=== PATIENT | female | born 1985 | race Caucasian/White ===

== ENCOUNTER 2016-11-17 00:05 | Emergency (ER) | payer BC, OTHER ==
[2016-11-17 00:49] LABS: APPEARANCE,URINE SLIGHTLY-CLOUDY; BILIRUBIN,URINE NEGATIVE (NEGATIVE); GLUCOSE, URINE NEGATIVE (NEGATIVE); KETONES,URINE NEGATIVE (NEGATIVE); LEUKOCYTE ESTERASE,URINE NEGATIVE (NEGATIVE); NITRITE,URINE NEGATIVE (NEGATIVE); PROTEIN,URINE NEGATIVE (NEGATIVE); URINE SPECIFIC GRAVITY 1.027
--- NOTE | 2016-11-17 00:49 | ER Document Report ---
ED GI/ - General Chief Complaint: Abdominal Pain Stated Complaint: ABDOMINAL AND BACK PAIN Time Seen by Provider: 11/17/16 00:40 Notes: Patient is a 31-year-old female who comes emergency department for chief complaint of pains in both her lower abdomen and in her lower back, worse on the right side, he states the pain is intermittent, occasionally pain is worse and cause her nausea, she denies vomiting, she denies fever. She does admit to vaginal discharge, potential exposure with recent sexual encounter. She denies dysuria. Past medical history of appendectomy, C-sections, tubal ligation. She takes no daily medications. TRAVEL OUTSIDE OF THE [place] IN LAST 30 DAYS: No - Related Data Allergies/Adverse Reactions: Penicillins Allergy (Intermediate, Verified 02/06/16 17:53) ? as child Past Medical History - General Information source: Patient - Social History Smoking Status: Never Smoker Frequency of alcohol use: None Drug Abuse: None Lives with: Family Family History: CAD, DM, Hyperlipidemia, Hypertension, Malignancy - Past Medical History Cardiac Medical History: Denies: Hx Coronary Artery Disease, Hx Heart Attack, Hx Hypertension Pulmonary Medical History: Reports: Hx Bronchitis Denies: Hx Asthma, Hx COPD, Hx Pneumonia Neurological Medical History: Denies: Hx Cerebrovascular Accident, Hx Seizures Renal/ Medical History: Denies: Hx Peritoneal Dialysis Psychiatric Medical History: Reports: Hx Anxiety, Hx Bipolar Disorder, Hx Depression, Hx Personality Disorder Infectious Medical History: Reports: Hx MRSA Past Surgical History: Reports: Hx Appendectomy, Hx Section - x 3, Hx Orthopedic Surgery - right wrist, Hx Tubal Ligation - Immunizations Immunizations up to date: Yes Hx Diphtheria, Pertussis, Tetanus Vaccination: Yes Review of Systems - Review of Systems Constitutional: No symptoms reported EENT: No symptoms reported Cardiovascular: No symptoms reported Respiratory: No symptoms reported Gastrointestinal: See HPI Genitourinary: See HPI Female Genitourinary: No symptoms reported Musculoskeletal: No symptoms reported Skin: No symptoms reported Hematologic/Lymphatic: No symptoms reported Neurological/Psychological: No symptoms reported Physical Exam - Vital signs Vitals: Temp Pulse Resp BP Pulse Ox 98.9 F 80 16 122/75 100 11/17/16 00:23 11/17/16 00:23 11/17/16 00:23 11/17/16 00:23 11/17/16 00:23 Interpretation: Normal - General General appearance: Appears well, Alert In distress: None - Patient alert, talkative, well - HEENT Head: Normocephalic, Atraumatic Eyes: Normal Pupils: PERRL - Respiratory Respiratory status: No respiratory distress Chest status: Nontender Breath sounds: Normal Chest palpation: Normal - Cardiovascular Rhythm: Regular Heart sounds: Normal auscultation Murmur: No - Abdominal Inspection: Normal Distension: No distension Bowel sounds: Normal Tenderness: Nontender. No: Tender - Tender abdomen, no guarding, no rigidity Organomegaly: No organomegaly - Genitourinary External exam: Normal - [employer] Muriel present during exam Speculum exam: Cervix closed, Vaginal discharge - Moderate amount of vaginal discharge noted, mild erythema of the cervix, otherwise unremarkable examination Vaginal bleeding: None Bimanuel exam: No: Cervical motion tender - Back Back: Normal, Nontender. No: CVA tenderness - No CVA tenderness bilaterally - Extremities General upper extremity: Normal inspection, Nontender, Normal color, Normal ROM , Normal temperature General lower extremity: Normal inspection, Nontender, Normal color, Normal ROM , Normal temperature, Normal weight bearing. No: Ublmaro's sign - Neurological Neuro grossly intact: Yes Cognition: Normal Orientation: AAOx4 Casey Coma Scale Eye Opening: Spontaneous Casey Coma Scale Verbal: Oriented [place] Coma Scale Motor: Obeys Commands Casey Coma Scale Total: 15 Speech: Normal Motor strength normal: LUE, RUE, LLE, RLE Sensory: Normal - Psychological Associated symptoms: Normal affect, Normal mood - Skin Skin Temperature: Warm Skin Moisture: Dry Skin Color: Normal Course - Re-evaluation Re-evalutation: Whitman unremarkable, hCG is negative, initial wet mount is unremarkable although patient does have discharge on exam, reported exposure. Vital signs unremarkable. No CVA tenderness or abdominal pain on exam. Discussed with patient, patient will be covered for gonorrhea and chlamydia as well as pelvic infection with Rocephin and azithromycin, discussed follow-up, discussed return precautions, patient states understanding and agreement. 11/17/16 06:49 Called patient back at [phone], left message as patient requested telling her pending results are negative. - Vital Signs Vital signs: Temp Pulse Resp BP Pulse Ox 98.2 F 87 18 135/84 H 100 11/17/16 04:00 11/17/16 04:00 11/17/16 04:00 11/17/16 04:00 11/17/16 04:00 - Laboratory Laboratory results interpreted by me: 11/17/16 00:30 Urine Urobilinogen 2.0 H Discharge - Discharge Clinical Impression: Lower abdominal pain, Vaginal discharge Condition: Stable Disposition: HOME, SELF-CARE Additional Instructions: Your urinalysis does not show any concerning abnormalities, test is negative. You have been covered for a pelvic infection. Follow-up with primary care. Return to emergency department for any concerning or worsening symptoms including severe pain, vomiting, fever, etc. Forms: Return to Work
[2016-11-17] MEDS ORDERED: CEFTRIAXONE INJ 250 MG VIAL IM ONE (03:14)
[2016-11-17] MEDS ORDERED: AZITHROMYCIN 250 MG TABLET PO ONE (03:14)
[2016-11-17] MEDS ORDERED: LIDOCAINE 1% INJ-PF (10 MG/ML) 30 ML SDV INJ ONE (03:14)
[2016-11-17 04:18] VITALS: BP 135/84
[2016-11-17 05:50] LABS: CHLAM PCR NOT DETECTED (NOT DETECT)
== END 2016-11-17 04:19 | disposition home or self-care (01) ==
LOC: ER 00:05
DX: R10.30 Lower abdominal pain, unspecified (principal); N89.8 Other specified noninflammatory disorders of vagina; M54.9 Dorsalgia, unspecified
CPT/HCPCS: 99283; 96372; 87210; 81025; 81001; 87491; 87591; J3490; J0696

== ENCOUNTER 2017-02-06 23:04 | Emergency (ER) | payer OTHER ==
[2017-02-07] MEDS ORDERED: LIDOCAINE 5% (700 MG) TRANSDERMAL ADH..PATCH TP ONE (00:39)
[2017-02-07] MEDS ORDERED: HALOPERIDOL LACTATE INJ 5 MG/1 ML VIAL IV ONE (00:39)
--- NOTE | 2017-02-07 00:41 | ER Document Report ---
ED General - General Chief Complaint: Flank Pain Stated Complaint: BACK PAIN,ABDOMINAL PAIN Time Seen by Provider: 02/06/17 23:49 Notes: Patient is a 31-year-old female with a past medical history of bipolar disorder , depression, anxiety, and recurrent abdominal pain who presents with 6-7 months of intermittent right lower quadrant abdominal pain as well as right low back pain. Shee does describe the symptoms as intermittent, dull, throbbing, moderate to severe pain. Nothing improves or worsens the pain. She does note the symptoms started to become more frequent if she came off all her psychiatric medications due to losing insurance coverage. Denies any vomiting or diarrhea. No vaginal bleeding, discharge or dysuria. She has not seen a primary care doctor regarding today's concerns. Nothing is new or different about her condition today that prompted a visit to the emergency department. TRAVEL OUTSIDE OF THE [place] IN LAST 30 DAYS: No - Related Data Allergies/Adverse Reactions: Penicillins Allergy (Intermediate, Verified 02/06/16 17:53) ? as child Past Medical History - General Information source: Patient - Social History Smoking Status: Current Every Day Smoker Frequency of alcohol use: None Drug Abuse: None Family History: CAD, DM, Hyperlipidemia, Hypertension, Malignancy Patient has suicidal ideation: No Patient has homicidal ideation: No - Past Medical History Cardiac Medical History: Denies: Hx Coronary Artery Disease, Hx Heart Attack, Hx Hypertension Pulmonary Medical History: Reports: Hx Bronchitis Denies: Hx Asthma, Hx COPD, Hx Pneumonia Neurological Medical History: Denies: Hx Cerebrovascular Accident, Hx Seizures Renal/ Medical History: Denies: Hx Peritoneal Dialysis Psychiatric Medical History: Reports: Hx Anxiety, Hx Bipolar Disorder, Hx Depression, Hx Personality Disorder Infectious Medical History: Reports: Hx MRSA Past Surgical History: Reports: Hx Appendectomy, Hx Section - x 3, Hx Orthopedic Surgery - right wrist, Hx Tubal Ligation - Immunizations Immunizations up to date: Yes Hx Diphtheria, Pertussis, Tetanus Vaccination: Yes Review of Systems - Review of Systems Notes: Constitutional: Negative for fever. HENT: Negative for sore throat. Eyes: Negative for visual changes. Cardiovascular: Negative for chest pain. Respiratory: Negative for shortness of breath. Gastrointestinal: Positive for abdominal pain Genitourinary: Negative for dysuria. Musculoskeletal: Negative for back pain. Skin: Negative for rash. Neurological: Negative for headaches, weakness or numbness. 10 point ROS negative except as marked above and in HPI. Physical Exam - Vital signs Vitals: Temp Pulse Resp BP Pulse Ox 98.7 F 89 16 137/82 H 100 02/07/17 01:55 02/07/17 01:55 02/07/17 01:55 02/07/17 01:55 02/07/17 01:55 Notes: PHYSICAL EXAMINATION: GENERAL: Well-appearing, well-nourished and in no acute distress. HEAD: Atraumatic, normocephalic. EYES: Pupils equal round and reactive to light, extraocular movements intact, sclera anicteric, conjunctiva are normal. ENT: nares patent, oropharynx clear without exudates. Moist mucous membranes. NECK: Normal range of motion, supple without lymphadenopathy LUNGS: Breath sounds clear to auscultation bilaterally and equal. No wheezes rales or rhonchi. HEART: Regular rate and rhythm without murmurs ABDOMEN: Soft, nontender, normoactive bowel sounds. No guarding, no rebound. No masses appreciated. EXTREMITIES: Normal range of motion, no pitting or edema. No cyanosis. NEUROLOGICAL: No focal neurological deficits. Moves all extremities spontaneously and on command. PSYCH: Normal mood, normal affect. SKIN: Warm, Dry, normal turgor, no rashes or lesions noted. Course - Re-evaluation Re-evalutation: 02/07/17 00:40 Presentation of generalized, intermittent abdominal pain. Abdominal exam is benign without any focal tenderness. Vitals are normal at the time of arrival. Laboratories are unremarkable without evidence of cystitis, , or leukocytosis. Patient is overall very well in appearance. Based on clinical history and examination I do not suspect an acute appendicitis (patient does have a history of an appendectomy), tubo-ovarian abscess, related pathology, pelvic inflammatory disease, mesenteric ischemia, or pyelonephritis. Patient herself states that the symptoms started after she came off all of her psychiatric medications and believes that her pain is related to her underlying psychiatric illness. She has improvement of her pain here after receiving haloperidol. No indication for imaging or further laboratories. At this time will discharge with return precautions and follow-up recommendations. Verbal discharge instructions given a the bedside and opportunity for questions given. Medication warnings reviewed. Patient is in agreement with this plan and has verbalized understanding of return precautions and the need for primary care follow-up in the next 24-72 hours. 02/07/17 02:24 - Vital Signs Vital signs: Temp Pulse Resp BP Pulse Ox 98.7 F 89 16 137/82 H 100 02/07/17 01:55 02/07/17 01:55 02/07/17 01:55 02/07/17 01:55 02/07/17 01:55 - Laboratory Result Diagrams: 02/07/17 00:13 Laboratory results interpreted by me: 02/07/17 02/07/17 00:13 00:13 Chloride 108 H Urine Urobilinogen 4.0 H Discharge - Discharge Clinical Impression: Abdominal pain Qualifiers: Abdominal location: right lower quadrant Qualified Code(s): R10.31 - Right lower quadrant pain Low back pain Qualifiers: Chronicity: acute Back pain laterality: right Sciatica presence: without sciatica Qualified Code(s): M54.5 - Low back pain Condition: Good Disposition: HOME, SELF-CARE Additional Instructions: You have been seen in the Emergency Department (ED) for abdominal pain. Your evaluation did not identify a clear cause of your symptoms but was generally reassuring. Please follow up with your doctor as soon as possible regarding today's emergent visit and the symptoms that are bothering you. Return to the ED if your abdominal pain worsens or fails to improve, you develop bloody vomiting, bloody diarrhea, you are unable to tolerate fluids due to vomiting, fever greater than 101, or other symptoms that concern you. Referrals: SU CHATMAN FNP [Primary Care Provider] - Follow up as needed
[2017-02-07 00:46] LABS: ANION GAP 11 (5-19); BLOOD UREA NITROGEN 14 mg/dL (7-20); CALCIUM 9.9 mg/dL (8.4-10.2); CARBON DIOXIDE 25 mmol/L (22-30); CHLORIDE 108 mmol/L (98-107); CREATININE RESULT 0.83 mg/dL (0.52-1.25); GLUCOSE 89 mg/dL (75-110); POTASSIUM 4.1 mmol/L (3.6-5.0); SODIUM 144.1 mmol/L (137-145)
[2017-02-07 00:47] LABS: AMORPHOUS SEDIMENT,URINE TRACE /HPF; APPEARANCE,URINE CLOUDY; BILIRUBIN,URINE NEGATIVE (NEGATIVE); GLUCOSE, URINE NEGATIVE (NEGATIVE); KETONES,URINE NEGATIVE (NEGATIVE); LEUKOCYTE ESTERASE,URINE NEGATIVE (NEGATIVE); NITRITE,URINE NEGATIVE (NEGATIVE); PROTEIN,URINE NEGATIVE (NEGATIVE); URINE SPECIFIC GRAVITY 1.025
[2017-02-07 01:57] VITALS: BP 137/82
== END 2017-02-07 01:55 | disposition home or self-care (01) ==
LOC: ER 23:04
DX: R10.31 Right lower quadrant pain (principal); R10.84 Generalized abdominal pain; M54.5 Low back pain; F17.200 Nicotine dependence, unspecified, uncomplicated; Z88.0 Allergy status to penicillin; Z90.49 Acquired absence of other specified parts of digestive tract; Z98.51 Tubal ligation status
CPT/HCPCS: 99284; 96374; 36415; 84703; 80048; 81001; J1630

== ENCOUNTER 2019-06-26 19:36 | Emergency (ER) | payer BC, OTHER ==
[2019-06-26] MEDS ORDERED: IBUPROFEN 800 MG TABLET PO ONE (20:33)
--- NOTE | 2019-06-26 20:38 | ER Document Report ---
HPI - HPI Time Seen by Provider: 06/26/19 20:23 Pain Level: 3 Context: Patient is a 34-year-old female who presents emergency department with a chief complaint of right knee pain. Patient reports 2 days ago waking up with right knee pain. Patient reports she is able to flex the right knee without pain but when she straightens it or stands on it while straight she has pain in her right below the kneecap. Patient denies injury or fall. 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 Patient has not used Tylenol or ibuprofen. Patient reports she has been using a [id number] numbing agent to her knee without relief. Patient reports she does not wear supportive shoes while at work. - REPRODUCTIVE Reproductive: DENIES: : Past Medical History - General Information source: Patient - Social History Smoking Status: Current Every Day Smoker Lives with: Family Family History: CAD, DM, Hyperlipidemia, Hypertension, Malignancy Patient has suicidal ideation: No Patient has homicidal ideation: No - Past Medical History Cardiac Medical History: Reports: None Denies: Hx Coronary Artery Disease, Hx Heart Attack, Hx Hypertension Pulmonary Medical History: Reports: Hx Bronchitis Denies: Hx Asthma, Hx COPD, Hx Pneumonia EENT Medical History: Reports: None Neurological Medical History: Reports: None. Denies: Hx Cerebrovascular Accident, Hx Seizures Endocrine Medical History: Reports: None Renal/ Medical History: Reports: None. Denies: Hx Peritoneal Dialysis Malignancy Medical History: Reports: None GI Medical History: Reports: None Musculoskeletal Medical History: Reports None Skin Medical History: Reports None Psychiatric Medical History: Reports: Hx Anxiety, Hx Bipolar Disorder, Hx Depression, Hx Personality Disorder Traumatic Medical History: Reports: None Infectious Medical History: Reports: Hx MRSA Past Surgical History: Reports: Hx Appendectomy, Hx Section - x 3, Hx Orthopedic Surgery - right wrist, Hx Tubal Ligation - Immunizations Immunizations up to date: Yes Hx Diphtheria, Pertussis, Tetanus Vaccination: Yes Vertical Provider Document - CONSTITUTIONAL Agree With Documented VS: Yes Exam Limitations: No Limitations General Appearance: No Apparent Distress - INFECTION CONTROL TRAVEL OUTSIDE OF THE [place] IN LAST 30 DAYS: No - HEENT HEENT: Atraumatic, Normal ENT Exam, Normocephalic, PERRLA - NECK Neck: Normal Inspection - RESPIRATORY Respiratory: Breath Sounds Normal, No Respiratory Distress - CARDIOVASCULAR Cardiovascular: Regular Rate, Regular Rhythm - GI/ABDOMEN Gastrointestinal: Abdomen Soft, Abdomen Non-Tender, Normal Bowel Sounds - BACK Back: Normal Inspection - MUSCULOSKELETAL/EXTREMETIES Notes: Patient is able to fully flex and extend the right knee. Patient does not have any significant edema, erythema or ecchymosis noted to the right knee. Patient has point tenderness to the patellar tendon. Patient has a +2 popliteal, posterior tibial and dorsalis pedis pulse. Patient able to ambulate with a steady gait. - NEURO Level of Consciousness: Awake, Alert, Appropriate - DERM Integumentary: Warm, Dry, No Rash Course - Re-evaluation Re-evalutation: 06/26/19 20:36 Did inform the patient that at this time I do not believe an x-ray is necessary as there was no fall or trauma. Patient has not been taking anything for her discomfort. Will prescribe anti-inflammatories, rest, ice and elevation. We will also give crutches to rest over the next few days. Patient is tender over the patella tendon. This was palpated. There is no significant edema, erythema or ecchymosis. Will give a dose of ibuprofen prior to discharge. Patient to return if symptoms do not improve within the next week. - Vital Signs Vital signs: Temp Pulse Resp BP Pulse Ox 97.7 F 77 20 132/76 H 98 06/26/19 19:50 06/26/19 19:50 06/26/19 19:50 06/26/19 19:50 06/26/19 19:50 Discharge - Discharge Clinical Impression: Right knee pain Qualifiers: Chronicity: acute Qualified Code(s): M25.561 - Pain in right knee Condition: Stable Disposition: HOME, SELF-CARE Additional Instructions: *Today was in the emergency department for right knee pain. You are tender over the patella tendon. Please incorporate the 800 mg ibuprofen which you can take 3 times daily for pain. You can also take Tylenol. Please rest over the next few days, use the crutches and analia wrap. Ice and elevate. Please make sure when you do return to work that you are wearing supportive shoes since you do stand all day and work 2 jobs. *Please return the emergency department if symptoms worsen or change. Tendon Strain You have strained a tendon. "Strain" means stretching and partial tearing of the fibers of the tendon. This often occurs with strenuous exertion, or during an injury that suddenly stretches the tendon. The seriousness of a strain varies. Some strains heal within days, others cause problems for months. X-rays don't show a tendon strain. X-rays are taken only if symptoms suggest that a fracture could be present. The usual treatment of a tendon strain is rest and ice packs. Sometimes a sling, splint, or crutches may be necessary to rest the tendon. The area can be used again once pain subsides. Severe strains require a special exercise and stretching program to prevent permanent stiffness and disability. Your doctor will advise you if this will be necessary. Call the doctor immediately if pain or swelling becomes severe, or if numbness or discoloration develop. Prescriptions: Ibuprofen [Motrin 800 mg Tablet] 800 mg PO Q8H PRN #30 tab PRN Reason: Forms: Return to Work Referrals: SU CHATMAN FNP [Primary Care Provider] - Follow up as needed
[2019-06-26 20:58] VITALS: BP 128/87
== END 2019-06-26 20:57 | disposition home or self-care (01) ==
LOC: ER 19:36
DX: M25.561 Pain in right knee (principal); F17.200 Nicotine dependence, unspecified, uncomplicated; Z86.14 Personal history of Methicillin resistant Staphylococcus aureus infection; Z98.51 Tubal ligation status
CPT/HCPCS: 99283